=== PATIENT | male | born 1980 | race American Indian/Alaskan Native ===

== ENCOUNTER 2017-10-28 11:50 | Emergency (ER) | payer SELFPAY ==
[2017-10-28] MEDS ORDERED: ASPIRIN PO ONE (12:37)
[2017-10-28 13:01] LABS: Basophils % (Auto) 0.5 % (0.0-1.8); Eosinophils # (Auto) 0.1 K/mm3 (0.0-0.4); Eosinophils % (Auto) 1.6 % (0.0-4.3); Hematocrit 44.9 % (35.5-45.6); Hemoglobin 15.3 gm/dl (11.8-15.2); Lymphocytes # (Auto) 2.5 K/mm3 (1.2-5.4); Lymphocytes % (Auto) 51.9 % (13.4-35.0); Mean Corpuscular HGB Conc 34 % (32-34); Mean Corpuscular Hemoglobin 33 pg (28-32); Mean Corpuscular Volume 97 fl (84-94); Monocytes # (Auto) 0.5 K/mm3 (0.0-0.8); Monocytes % (Auto) 10.7 % (0.0-7.3); Platelet Count 163 K/mm3 (140-440); Red Blood Count 4.62 M/mm3 (3.65-5.03); Red Cell Distribution Width 12.3 % (13.2-15.2)
[2017-10-28 14:45] LABS: BUN/Creatinine Ratio 11; Blood Urea Nitrogen 10 mg/dL (9-20); Calcium 9.6 mg/dL (8.4-10.2); Hemolysis Index 10
[2017-10-28] MEDS ORDERED: ALUM-MAG HYDROX-SIMETH 200-200-20MG/5ML PO ONE (20:56)
[2017-10-28] MEDS ORDERED: TYLENOL PO ONE (20:56)
[2017-10-28] MEDS ORDERED: PEPCID PO ONE (20:56)
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
--- NOTE | 2017-10-28 21:31 | XRay Report ---
FINAL REPORT EXAM: XR CHEST ROUTINE 2V HISTORY: right chest wall pain TECHNIQUE: Two view chest PA and lateral PRIORS: None. FINDINGS: Cardiac and mediastinal contours are unremarkable. No focal pulmonary infiltrate is identified. No pleural fluid collection seen. Pulmonary vasculature is unremarkable. IMPRESSION: Negative two-view chest
[2017-10-28 23:02] VITALS: BP 115/74
== END 2017-10-28 23:06 | disposition home or self-care (01) ==
LOC: ED 11:50
DX: M94.0 Chondrocostal junction syndrome [Tietze] (principal); R07.89 Other chest pain; F17.200 Nicotine dependence, unspecified, uncomplicated
CPT/HCPCS: 36415; 71046; 80048; 84484; 85025; 93005; 93010; 99284

== ENCOUNTER 2020-11-22 23:28 | Emergency (ER) | payer SELFPAY ==
[2020-11-22] MEDS ORDERED: dexAMETHasone 20 MG/5 ML VIAL IM ONE (23:43)
[2020-11-22] MEDS ORDERED: ACETAMINOPHEN 500 MG TAB PO ONE (23:43)
[2020-11-22] MEDS ORDERED: diphenhydrAMINE 25 MG CAP PO ONE (23:43)
[2020-11-22] MEDS ORDERED: METOCLOPRAMIDE 10 MG TAB PO ONE (23:43)
--- NOTE | 2020-11-22 23:50 | Emergency Department Report ---
ED Headache HPI - General Chief Complaint: Headache Stated Complaint: HEADACHE - History of Present Illness Initial Comments: Patient is a 39-year-old -[place] male who presents for frontal headache radiating to occipital x6 days intermittently. Pain is described at 6/10 aching sharp pressure. Symptoms are exacerbated by activity. Symptoms are relieved by nothing tried. Patient states similar headaches in the past generally relieved by Aleve or Advil. However same did not have an effect on headache this time. There is been no fever, chills, dizziness, lightheadedness, there is been no photophobia no nausea or vomiting. There is been no paresthesia or paralysis. Patient drove self to ED. Patient with no acute distress with steady gait. Timing/Duration: 1 week Quality: moderate Head Injury Location: occipital (radiating to frontal ) Recent Head Trauma: no recent headache/trauma Modifying Factors: improves with: movement Associated Symptoms: nasal congestion. denies: fever/chills, loss of consciousness, nausea/vomiting, nasal drainage, seizures, stiff neck, vision changes, weakness Allergies/Adverse Reactions: Allergies No Known Allergies Allergy (Unverified 11/15/13 09:29) Home Medications: Ambulatory Orders HYDROcodone/APAP 5-325 [[place] 5/325 mg] 1 each PO Q6HR PRN #10 tablet 11/15/13 Hyoscyamine Subl [Levsin Sl] 0.125 mg SL Q6HR PRN #14 tablet 04/12/14 Omeprazole Magnesium [Prilosec Otc] 20 mg PO QDAY #7 tablet. 04/12/14 Cyclobenzaprine [Flexeril 10mg] 10 mg PO TID PRN #30 tablet 05/11/14 Ibuprofen [Motrin] 800 mg PO Q8H #30 tablet 05/11/14 traMADoL [Ultram 50 MG tab] 50 mg PO Q6HR PRN #30 tablet 05/11/14 Famotidine [Pepcid] 20 mg PO QDAY #30 tablet 10/28/17 ED Review of Systems ROS: Stated complaint: HEADACHE Other details as noted in HPI Constitutional: no symptoms reported Eyes: denies: eye pain, eye discharge, vision change ENT: congestion. denies: ear pain, throat pain Respiratory: no symptoms reported. denies: cough, shortness of breath, wheezing Cardiovascular: denies: chest pain, palpitations Endocrine: no symptoms reported, intolerance to heat Gastrointestinal: denies: abdominal pain, nausea, vomiting, diarrhea Genitourinary: denies: urgency, dysuria Musculoskeletal: denies: back pain, joint swelling, arthralgia Skin: denies: rash, lesions Neurological: headache. denies: weakness, numbness, paresthesias, confusion, vertigo Psychiatric: denies: anxiety, depression Hematological/Lymphatic: as per HPI ED Past Medical Hx - Past Medical History Previous Medical History?: No - Surgical History Past Surgical History?: Yes Additional Surgical History: hemorrhoidectomy - Social History Smoking Status: Never Smoker Substance Use Type: None - Medications Home Medications: Home Medications Medication Instructions Recorded Confirmed Last Taken Type HYDROcodone/APAP 5-325 [[place] 1 each PO Q6HR PRN #10 tablet 11/15/13 Unknown Rx 5/325 mg] Hyoscyamine Subl [Levsin Sl] 0.125 mg SL Q6HR PRN #14 tablet 04/12/14 Unknown Rx Omeprazole Magnesium [Prilosec Otc] 20 mg PO QDAY #7 tablet.dr 04/12/14 Unknown Rx Cyclobenzaprine [Flexeril 10mg] 10 mg PO TID PRN #30 tablet 05/11/14 Unknown Rx Ibuprofen [Motrin] 800 mg PO Q8H #30 tablet 05/11/14 Unknown Rx traMADoL [Ultram 50 MG tab] 50 mg PO Q6HR PRN #30 tablet 05/11/14 Unknown Rx Famotidine [Pepcid] 20 mg PO QDAY #30 tablet 10/28/17 Unknown Rx ED Physical Exam - General Limitations: No Limitations General appearance: alert, in no apparent distress - Head Head exam: Present: atraumatic, normocephalic - Eye Eye exam: Present: PERRL, EOMI. Absent: conjunctival injection Pupils: Present: normal accommodation - ENT ENT exam: Present: normal orophraynx, mucous membranes moist, TM's normal bilaterally, normal external ear exam - Neck Neck exam: Present: normal inspection, full ROM. Absent: tenderness, meningismus, lymphadenopathy, thyromegaly - Respiratory Respiratory exam: Present: normal lung sounds bilaterally. Absent: respiratory distress, wheezes, stridor - Cardiovascular Cardiovascular Exam: Present: regular rate, normal rhythm, normal heart sounds. Absent: systolic murmur, diastolic murmur, rubs, gallop - GI/Abdominal GI/Abdominal exam: Present: soft, normal bowel sounds. Absent: distended, tenderness, guarding, rebound, rigid, bruit, hernia - Rectal Rectal exam: Present: deferred - Extremities Exam Extremities exam: Present: normal inspection, full ROM. Absent: tenderness - Back Exam Back exam: Present: normal inspection, full ROM. Absent: tenderness, vertebral tenderness - Neurological Exam Neurological exam: Present: alert, oriented X3, CN II-XII intact, normal gait, reflexes normal. Absent: motor sensory deficit - Expanded Neurological Exam Expanded Patient oriented to: Present: person, place, time Speech: Present: fluid speech Cranial nerves: EOM's Intact: Normal, Gag Reflex: Normal Motor strength exam: RUE: 5, LUE: 5, RLE: 5, LLE: 5 DTR: knee (R): 2+, knee (L): 2+ Best Eye Response ([place]): (4) open spontaneously Best Motor Response ([place]): (6) obeys commands Best Verbal Response ([place]): (5) oriented [place] Total: 15 - Psychiatric Psychiatric exam: Present: normal affect, normal mood - Skin Skin exam: Present: warm, dry, intact, normal color. Absent: rash ED Course Vital Signs 11/23/20 00:05 Respiratory 18 Rate - Reevaluation(s) Reevaluation #1: tylenol, benadryl, reglan, decadron at this time. 11/22/20 23:51 ED Medical Decision Making - Medical Decision Making headache resolve, plan: follow up with pcp in 2-3 days, take otc: tylenol and benadryl prn headache, pt verbalized understanding of same, pt dc'd to home in stable condition at this time. Critical care attestation.: If time is entered above; I have spent that time in minutes in the direct care of this critically ill patient, excluding procedure time. ED Disposition Clinical Impression: Headache Qualifiers: Headache type: unspecified Headache chronicity pattern: acute headache Intractability: not intractable Qualified Code(s): R51.9 - Headache, unspecified Disposition: DC-01 TO HOME OR SELFCARE Is pt being admited?: No Does the pt Need Aspirin: No Condition: Stable Additional Instructions: follow up with your doctor in 2-3 days, take over the counter tylenol and benadryl as needed for headache as discussed and agreed. Return to emergncy if symptoms worsen or return. Referrals: PRIMARY CARE, [Primary Care Provider] - 3-5 Days Time of Disposition: 01:09
== END 2020-11-23 01:07 | disposition home or self-care (01) ==
LOC: ED 23:28
DX: R51.9 Headache, unspecified (principal); Z90.89 Acquired absence of other organs; Z79.1 Long term (current) use of non-steroidal anti-inflammatories (NSAID); Z79.899 Other long term (current) drug therapy
CPT/HCPCS: 96372; 99282; J1100